=== PATIENT | male | born 1975 | race Caucasian/White ===

== ENCOUNTER 2022-07-26 08:00 | Day surgery (SDC) | payer BC, OTHER ==
[~2022-07-26 08:00] MED LIST: Acetaminophen/HYDROcodone 325-5 MG Tab PO PRN; Lactated Ringers 1,000 ML IV SCH
[2022-07-26] MEDS ORDERED: ceFAZolin 1 GM Vial ONE (08:09)
[2022-07-26] MEDS ORDERED: ceFAZolin 1 GM in Premix Bag 1 BAG IV ONE (08:19)
[2022-07-26] MEDS ORDERED: ceFAZolin 1 GM in Sodium Chloride 0.9% 50 ML IV ONE (09:00)
[2022-07-26] MEDS ORDERED: ceFAZolin 1 GM in Sodium Chloride 0.9% 100 ML IV ONE (09:00)
[2022-07-26] MEDS ORDERED: fentaNYL 100 MCG/2 ML SDV ONE (10:00)
[2022-07-26] MEDS ORDERED: Propofol 200 MG/20 ML SDV ONE (10:00)
== END 2022-07-26 11:40 | disposition home or self-care (01) ==
LOC: LB.SDS 08:00
PROVIDERS: ATTEND Orthopaedic Surgery
DX: G56.03 Carpal tunnel syndrome, bilateral upper limbs (principal); R20.0 Anesthesia of skin; Z79.899 Other long term (current) drug therapy
CPT/HCPCS: 64721; J0690; J2704; J3010; J7120

== ENCOUNTER 2023-07-28 16:35 | Emergency (ER) | payer OTHER | END 2023-07-28 19:40 | disposition home or self-care (01) | LOC: LB.ED 16:35 | DX: S16.1XXA Strain of muscle, fascia and tendon at neck level, initial encounter (principal); F17.210 Nicotine dependence, cigarettes, uncomplicated; X58.XXXA Exposure to other specified factors, initial encounter | CPT/HCPCS: 70360; 99283 ==